=== PATIENT | male | born 1990 | race American Indian/Alaskan Native ===

== ENCOUNTER 2021-09-15 08:47 | Emergency (ER) | payer SELFPAY ==
[2021-09-15 09:07] VITALS: BP 106/70
== END 2021-09-15 16:00 | disposition left against medical advice (07) ==
LOC: EDBD → ED 08:47
DX: R10.9 Unspecified abdominal pain (principal); Z53.21 Procedure and treatment not carried out due to patient leaving prior to being seen by health care provider